=== PATIENT | male | born 1950 | race Hispanic/Latino ===

== ENCOUNTER 2020-06-05 21:15 | Emergency (ER) | payer MEDICARE, SELFPAY ==
--- NOTE | ~2020-06-05 | CT_ITS ---
EXAMINATION: CTA chest PE protocol EXAM DATE: 06/05/2020 23:47 INDICATION: Chest pain, hurts to breathe. COVID positive. TECHNIQUE: Spiral CTA of the chest (pulmonary arteries) was performed with 100 cc Omnipaque 350 intr avenous contrast injection. Images were acquired during the pulmonary arterial phase. Coronal maxi mum intensity projection 3D-reconstructions were created by the technologist on dedicated workstation . Axial, coronal and sagittal reformatted images were reviewed. The dose-length product (DLP) for t his examination was 568.60 mGy-cm. The exposure was tailored according to patient size (auto mA exp osure control), and iterative reconstruction (ASIR) was used as additional dose reduction technique. There is no prior study for comparison. Correlation was made with chest x-ray earlier same day. FINDINGS: Pulmonary arteries are well opacified and without intraluminal filling defects. No thora cic aortic dissection. There are several small peripheral regions of groundglass opacities in the danii ngs bilaterally, distribution and appearance is consistent with provided history of COVID. There are no pleural or pericardial effusions. Tracheobronchial tree is patent. There is no mediastinal, h ilar or axillary lymphadenopathy. There is no pneumothorax. Heart normal in size. No evidence o f coronary arterial calcification. There is 2 cm gallstone. There is mild thoracic spondylosis with out osteoblastic or osteolytic lesions identified. IMPRESSION: 1. Small regions of airspace disease most likely COVID pneumonia. 2. No pulmonary emboli. Reviewed, dictated and finalized at location G. D GEOLOGIST
--- NOTE | ~2020-06-05 | XR_ITS ---
EXAMINATION: XR chest 1V portable EXAM DATE: 06/05/2020 22:13 INDICATION: Chest pressure, hurts to breathe. TECHNIQUE: Portable AP frontal chest x-ray was obtained. Comparison is made to prior examination from 03/02/2019. FINDINGS: The lungs are clear. There are no pleural effusions. Cardiac silhouette is prominent but magnified on this AP technique. There is no pneumothorax suspected. The bones and soft tissues are unremarkable. IMPRESSION: No acute cardiopulmonary findings. Reviewed, dictated and finalized at location A. FOLDER
--- NOTE | 2020-06-05 21:18 | ECG_ITS ---
Measurements Intervals [place] Rate: 67 P: 58 OR: 188 QRS: 19 QRSD: 112 T: 46 QT: 368 QTc: 388 Interpretive Statements SINUS RHYTHM RSR' IN V1 OR V2, CONSIDER RIGHT VENTRICULAR HYPERTROPHY OR RIGHT VCD BORDERLINE ECG Electronically Signed On 06-06-2020 7:06:18 LABORATORY WORKER by Yosef Gasca D.O.
[2020-06-05 21:34] VITALS: BP 161/58; PULSE 65; RESP 16; TEMP 37.2; O2SAT 100
--- NOTE | 2020-06-05 22:09 | ED.GENADULT ---
HPI - General Adult General Chief complaint: Chest Pain Stated complaint: covid+ chest pains, Time Seen by Provider: 06/05/20 21:46 History of Present Illness HPI narrative: Patient is a 69-year-old gentleman who presents the emergency department with chief complaint of chest pain. Patient reports he was diagnosed with COVID-19 on the and today started having a tightness in his chest. The patient states it is worse whenever he takes a deep breath states that it feels like it christians[place] whenever he takes a deep breath. The patient denies fever denies chills states this is an unusual thing for him reports that his also has had similar symptoms. Related Data Allergies Allergy/AdvReac Type Severity Reaction Status Date / Time No Known Allergies Allergy Unverified 08/03/18 11:57 Review of Systems Review of Systems: Narrative: A 10 system review of systems was completed on the patient and is negative except for what is stated in the HPI. Nursing and ancillary documentation was reviewed. PMFSH Comments Patient denies past medical history Social history the patient lives with his patient denies illicit drug use Exam Narrative: Exam Narrative: GENERAL: Well-appearing, well-nourished, and in no acute distress. HEAD: Normocephalic, atraumatic. EYES: PERRLA and EOMI. ENT: Nares clear, no rhinorrhea or epistaxis. Mucous membranes moist. NECK: Supple. CHEST: Clear to auscultation. No respiratory distress. HEART: Regular rate and rhythm. No murmur heard. Normal peripheral pulses. ABDOMEN: Soft, nontender, nondistended, normal active bowel sounds. EXTREMITIES: Normal range of motion. No edema. SKIN: Warm, dry, no rash. NEURO: No focal deficits. Alert and oriented x3. PSYCH: Normal mood and affect. Course Course Emergency Course: EKG is sinus rhythm rate of [address] elevation or ST depression nonspecific interventricular conduction delay Vital Signs Vital signs: Vital Signs Temperature 37.2 C 06/05/20 21:34 Pulse Rate 65 06/05/20 21:34 Respiratory Rate 16 06/05/20 21:34 Blood Pressure 161/58 H 06/05/20 21:34 Pulse Oximetry 100 06/05/20 21:34 Temperature 37.2 C 06/05/20 21:34 Pulse Rate 68 06/05/20 23:58 Respiratory Rate 18 06/05/20 23:58 Blood Pressure 141/64 H 06/05/20 23:58 Pulse Oximetry 97 06/05/20 23:58 Medical Decision Making Vital Signs Vital Signs: Vital Signs Temperature 37.2 C 06/05/20 21:34 Pulse Rate 65 06/05/20 21:34 Respiratory Rate 16 06/05/20 21:34 Blood Pressure 161/58 H 06/05/20 21:34 Pulse Oximetry 100 06/05/20 21:34 Temperature 37.2 C 06/05/20 21:34 Pulse Rate 68 06/05/20 23:58 Respiratory Rate 18 06/05/20 23:58 Blood Pressure 141/64 H 06/05/20 23:58 Pulse Oximetry 97 06/05/20 23:58 Lab Data Result diagrams: 06/05/20 22:30 06/05/20 22:35 Labs: Lab Results 06/05/20 06/05/20 06/05/20 Range/Units 22:30 22:30 22:35 WBC 4.8 (4.5-10.0) K/mm3 RBC 4.74 (4.6-6.20) M/mm3 Hgb 13.5 L (14.0-18.0) g/dL Hct 40.0 L (42.0-52.0) % MCV 84.4 (80-100) fl MCH 28.5 (26-34) pg MCHC 33.8 (32-36) g/dl RDW 11.9 (11.5-14.5) % Plt Count 293 (150-375) k/mm3 MPV 10.9 H (7.4-10.4) fl Immature Gran % (Auto) 0.0 (0-0.5) % Neut % (Auto) 50.7 (45.5-73.1) % Lymph % (Auto) 38.5 (18.3-44.2) % [place] % (Auto) 8.9 H (2.6-8.5) % Eos % (Auto) 1.5 (0-4.4) % Baso % (Auto) 0.4 (0.2-1.2) % Lymph # (Auto) 1.85 (0.9-3.2) K/mm3 [place] # (Auto) 0.4 (0.1-0.6) K/mm3 Eos # (Auto) 0.1 (0-0.3) K/mm3 Baso # (Auto) 0.0 (0.0-0.1) K/mm3 Abs Immat Gran (auto) 0.00 (0.00-0.031) K/mm3 Absolute Neuts (auto) 2.4 (1.3-6.7) K/mm3 Absolute Nucleated RBC 0.0 (0.0-0.012) K/mm3 Nucleated RBC % 0.0 (0.0-0.2) % PT 13.0 (11.1-14.7) Seconds INR 0.9 APTT 32.7 (22.3-36.8) SECONDS Sodium 138 (137-145) mmol/L
[2020-06-05 22:52] LABS: INR 0.9
[2020-06-05 22:53] LABS: Partial Thromboplastin Time 32.7 SECONDS (22.3-36.8)
[2020-06-05 22:53] LABS: Anion Gap 4 mmol/L (8-16); Blood Urea Nitrogen 20 mg/dL (9-20); Carbon Dioxide 30 mmol/L (22-30); Chloride 104 mmol/L (98-107); Estimated CRCL calculation 44 ml/min; Estimated Glomerular Filt Rate 60; Glucose 110 mg/dL (75-110); Potassium 4.1 mmol/L (3.4-5.0); Sodium 138 mmol/L (137-145)
[2020-06-05 22:56] LABS: Basophils Percent Auto 0.4 % (0.2-1.2); Eosinophils Absolute Auto 0.1 K/mm3 (0-0.3); Eosinophils Percent Auto 1.5 % (0-4.4); Hemoglobin 13.5 g/dL (14.0-18.0); Lymphocytes Absolute Auto 1.85 K/mm3 (0.9-3.2); Lymphocytes Percent Auto 38.5 % (18.3-44.2); Mean Corpuscular HGB Conc 33.8 g/dl (32-36); Mean Corpuscular Hemoglobin 28.5 pg (26-34); Mean Corpuscular Volume 84.4 fl (80-100); Mean Platelet Volume 10.9 fl (7.4-10.4); Monocytes Absolute Auto 0.4 K/mm3 (0.1-0.6); Monocytes Percent Auto 8.9 % (2.6-8.5); Neutrophils Absolute Auto 2.4 K/mm3 (1.3-6.7); Neutrophils Percent Auto 50.7 % (45.5-73.1); Platelet Count Result 293 k/mm3 (150-375); Red Blood Count 4.74 M/mm3 (4.6-6.20); Red Cell Distribution Width 11.9 % (11.5-14.5); White Blood Count 4.8 K/mm3 (4.5-10.0)
[2020-06-05] MEDS: ASPIRIN 81 MG CHEWABLE TABLET 324 MG PO (23:00)
[2020-06-05 23:04] LABS: Troponin I < 0.012 ng/mL (0.000-0.034)
[2020-06-05 23:58] VITALS: BP 141/64; PULSE 68; RESP 18; O2SAT 97
[2020-06-06 01:45] VITALS: BP 124/67; PULSE 65; RESP 18; O2SAT 98
== END 2020-06-06 01:00 | disposition home or self-care (01) ==
PROVIDERS: Emergency Medicine; Emergency Provider Emergency Medicine
DX: U07.1 COVID-19 (principal); J12.82 Pneumonia due to coronavirus disease 2019
CPT/HCPCS: 36415; 71045; 71275; 80048; 84484; 85025; 85610; 85730; 93005; 99284; A9270; Q9967

== ENCOUNTER 2020-07-22 09:55 | Outpatient (CLI) | payer MEDICARE, SELFPAY ==
[2020-07-22 11:56] LABS: Alanine Aminotransferase 36 U/L (4-50); Alkaline Phosphatase 52 U/L (38-126); Anion Gap 4 mmol/L (8-16); Aspartate Amino Transferase 43 U/L (17-59); Bilirubin,Total 0.6 mg/dL (0.2-1.3); Blood Urea Nitrogen 14 mg/dL (9-20); Calcium 8.5 mg/dL (8.4-10.2); Carbon Dioxide 28 mmol/L (22-30); Chloride 107 mmol/L (98-107); Cholesterol 178 mg/dL (0-200); Creatine Kinase 653 U/L (55-170); Estimated Glomerular Filt Rate > 60; Glucose 100 mg/dL (75-110); HDL Direct 44 mg/dL; Potassium 4.3 mmol/L (3.4-5.0); Sodium 139 mmol/L (137-145); Triglycerides 140 mg/dL (<150)
[2020-07-22 12:07] LABS: LDL Cholesterol Direct 101 mg/dL
== END 2020-07-22 09:56 | disposition home or self-care (01) ==
PROVIDERS: PCP Physician Assistant; Visit Provider Specialist
DX: R07.9 Chest pain, unspecified (principal); I25.10 Atherosclerotic heart disease of native coronary artery without angina pectoris; E78.5 Hyperlipidemia, unspecified; R60.9 Edema, unspecified; Z79.899 Other long term (current) drug therapy; R00.2 Palpitations
CPT/HCPCS: 36415; 80053; 80061; 82550

== ENCOUNTER 2020-11-07 18:40 | Emergency (ER) | payer MEDICARE, SELFPAY ==
[2020-11-07 18:46] VITALS: BP 141/51; PULSE 60; RESP 20; TEMP 36.2; O2SAT 99
--- NOTE | 2020-11-07 21:36 | ED.SKABFB ---
HPI - Skin/Abscess/Foreign Bdy General Chief complaint: Skin/Abscess/Foreign Body Stated complaint: rash possibly poison rosi per pt Time Seen by Provider: 11/07/20 21:18 Source: patient Mode of arrival: ambulatory Limitations: no limitations History of Present Illness HPI narrative: Patient is a 70 year old male who presents reporting rash to bilateral hands x 1 day. Patient reports exposure to poison rosi. He reports itching and irritation to right hand. He reports using hydrocortisone cream without relief. Patient denies taking oral medications for itching. He denies all other complaints, denies significant medical history. MD complaint: rash Related Data Allergies Allergy/AdvReac Type Severity Reaction Status Date / Time No Known Allergies Allergy Unverified 08/03/18 11:57 Review of Systems Review of Systems: Narrative: CONSTITUTIONAL: Denies fever, chills, or sweats. EYES: Denies visual changes, redness, or discharge. ENT: Denies rhinorrhea, congestion, sore throat, or otalgia. CARDIOVASCULAR: Denies chest pain, palpitations, or edema. RESPIRATORY: Denies cough or dyspnea. GASTROINTESTINAL: Denies abdominal pain, nausea, vomiting, or diarrhea. GENITOURINARY: Denies dysuria or hematuria. SKIN: Rash to bilateral hands MUSCULOSKELETAL: Denies back pain, joint pain, or myalgia. NEUROLOGIC: Denies headache, numbness, dizziness, or weakness. PSYCHIATRIC: Denies anxiety or depression. PMFSH Surgical History Surgical History No significant past surgical history Social History Social History Smoking status: Never smoker Alcohol intake: never Substance use: never Living arrangements: with family Gender identity (if verbalized by the patient): Male Comments At the time of signature, I have reviewed and agree with nursing past medical, surgical, social, and family history unless otherwise noted. Please see nursing chart for further information. There is no relevant family history pertinent to the presenting complaint. Exam Narrative: Exam Narrative: GENERAL: Well-appearing, well-nourished, and in no acute distress. HEAD: Normocephalic, atraumatic. EYES: EOMI. No redness or drainage. Conjunctiva are normal. ENT: Mucous membranes pink and moist. CHEST: No respiratory distress. HEART: Regular rate and rhythm. EXTREMITIES: Normal range of motion. SKIN: Vesicular rash to bilateral hands, mild edema noted to right hand NEURO: No focal deficits. Alert and oriented x3. Gait steady. PSYCH: Normal affect. No signs of depression or anxiety. Course Vital Signs Vital signs: Vital Signs Temperature 36.2 C L 11/07/20 18:46 Pulse Rate 60 11/07/20 18:46 Respiratory Rate 20 11/07/20 18:46 Blood Pressure 141/51 H 11/07/20 18:46 Pulse Oximetry 99 11/07/20 18:46 Temperature 36.2 C L 11/07/20 18:46 Pulse Rate 60 11/07/20 18:46 Respiratory Rate 20 11/07/20 18:46 Blood Pressure 141/51 H 11/07/20 18:46 Pulse Oximetry 99 11/07/20 18:46 Reviewed. Patient has been instructed to follow-up with his PCP regarding his blood pressure. MDM - Skin/Abscess/Foreign Bdy MDM Narrative Medical decision making narrative: Patient appears to have poison rosi to bilateral hands. Patient started on glucocorticoids and topical treatment at this time. Patient agrees with plan of care. Patient is stable for discharge home with outpatient follow-up as directed. Differential Diagnosis Differential diagnosis: Likely abscess of skin or subcutaneous tissue, urticaria, allergic reaction to drug, cellulitis, insect bites, impetigo and contact dermatitis Critical Care Time Critical Care Time Critical Care Time: No Discharge Plan Discharge Clinical Impression: Contact dermatitis Patient Disposition: Home, Self-Care Condition: Stable Instructions: Contact Dermatitis (ED), Poison Rosi (ED) [place]
--- NOTE | 2020-11-07 23:33 | PC.NURSE ---
verbal prescriptions given to tracy @ [facility], [facility].
== END 2020-11-07 22:21 | disposition home or self-care (01) ==
PROVIDERS: Emergency Provider Nurse Practitioner; PCP Physician Assistant
DX: L25.9 Unspecified contact dermatitis, unspecified cause (principal)
CPT/HCPCS: 99283

== ENCOUNTER 2021-08-09 15:10 | Emergency (ER) | payer OTHER, SELFPAY ==
[2021-08-09] VITALS (9 sets, daily range): BP systolic 140–155; BP diastolic 63–73; PULSE 47–60; RESP 11–22; TEMP 36.6; O2SAT 97–100
--- NOTE | ~2021-08-09 | CT_ITS ---
EXAMINATION: CTA chest PE protocol DATE: 08/09/2021 20:21 INDICATION: Shortness of breath with exertion TECHNIQUE: Computed tomography angiography (CTA) of the chest was performed with 100 mL Omnipaque-350 intravenous contrast timed to evaluate the pulmonary arteries. Coronal maximum intensity projection 3D-reconstructions were created by the technologist. The dose-length product (DLP) was 470.64 mGy-cm. Automated exposure control and iterative reconstruction technique were employed. COMPARISON: 06/05/2020 FINDINGS: The pulmonary arteries are well-opacified. No pulmonary embolism is identified. There is de pendent atelectasis. There are minimal airspace opacities of the left lower lobe. There is no pleural effusion or pneumothorax. No pathologically enlarged thoracic lymph nodes are identified. The heart size is normal. A stone is present in the nondistended gallbladder. There is mild thoracic spondylosi s. IMPRESSION: 1. No pulmonary embolus. 2. Minimal left lower lobe airspace opacities, consistent with pneumonia. Reviewed, dictated and finalized at location F.
--- NOTE | ~2021-08-09 | XR_ITS ---
EXAMINATION: XR chest 2V DATE: 08/09/2021 15:57 INDICATION: Shortness of breath TECHNIQUE: PA and lateral views of the chest are obtained. COMPARISON: 06/05/2020 FINDINGS: The lungs are free of acute opacities. There is no pleural effusion or pneumothorax. The he art size is normal. An ASD closure device is noted. There is mild thoracic spondylosis. IMPRESSION: 1. No acute cardiopulmonary abnormality. Reviewed, dictated and finalized at location F.
--- NOTE | 2021-08-09 15:30 | ECG_ITS ---
Measurements Intervals [place] Rate: 53 P: 54 [place]: 201 QRS: 1 QRSD: 109 T: 41 QT: 405 QTc: 382 Interpretive Statements SINUS BRADYCARDIA INCOMPLETE RIGHT BUNDLE BRANCH BLOCK [90+ ms QRS DURATION, TERMINAL R IN V1/V2, 40+ ms S IN I/aVL/V4/V5/V6] COMPARED TO ECG 06/05/2020 21:25:25 SINUS BRADYCARDIA NOW PRESENT Electronically Signed On 08-10-2021 16:09:48 CDT by William Ramos M.D.
[2021-08-09 17:21] LABS: Basophils Absolute Auto 0.1 K/mm3 (0.0-0.1); Basophils Percent Auto 0.9 % (0.2-1.2); Eosinophils Absolute Auto 0.1 K/mm3 (0-0.3); Eosinophils Percent Auto 2.4 % (0-4.4); Hematocrit 42.2 % (42.0-52.0); Hemoglobin 14.7 g/dL (14.0-18.0); Lymphocytes Absolute Auto 2.11 K/mm3 (0.9-3.2); Lymphocytes Percent Auto 36.3 % (18.3-44.2); Mean Corpuscular HGB Conc 34.8 g/dl (32-36); Mean Corpuscular Hemoglobin 28.8 pg (26-34); Mean Corpuscular Volume 82.6 fl (80-100); Mean Platelet Volume 10.8 fl (7.4-10.4); Monocytes Absolute Auto 0.5 K/mm3 (0.1-0.6); Monocytes Percent Auto 8.4 % (2.6-8.5); Platelet Count Result 235 k/mm3 (150-375); Red Blood Count 5.11 M/mm3 (4.6-6.20); White Blood Count 5.8 K/mm3 (4.5-10.0)
[2021-08-09 17:36] LABS: Alanine Aminotransferase 55 U/L (4-50); Albumin Level 4.6 g/dL (3.5-5.1); Alkaline Phosphatase 68 U/L (38-126); Anion Gap 8 mmol/L (8-16); Aspartate Amino Transferase 42 U/L (17-59); Bilirubin,Total 0.6 mg/dL (0.2-1.3); Blood Urea Nitrogen 16 mg/dL (9-20); Calcium 8.4 mg/dL (8.4-10.2); Carbon Dioxide 22 mmol/L (22-30); Chloride 106 mmol/L (98-107); Estimated CRCL calculation 73 ml/min; Estimated Glomerular Filt Rate > 60; Glucose 97 mg/dL (65-110); Sodium 136 mmol/L (137-145)
--- NOTE | 2021-08-09 17:39 | ED.SOB ---
HPI - SOB/Dyspnea General Chief Complaint: Shortness of Breath/Dyspnea Stated Complaint: shortness of breath Time Seen by Provider: 08/09/21 17:29 History of Present Illness HPI Narrative: 70-year-old male history of septal occlusive device presents emergency room for evaluation of shortness of breath that he has experienced for 3 days. Patient states that shortness of breath comes and goes, but has noted that it is worse with exertion. Patient denies any chest pain, dizziness, presyncope, or weakness. Patient denies any significant history other than prostate cancer. Patient states that he was evaluated annually by his operating system designer, states last year had a normal echo and stress test. Related Data Allergies Allergy/AdvReac Type Severity Reaction Status Date / Time No Known Allergies Allergy Unverified 08/03/18 11:57 Review of Systems Review of Systems: CONSTITUTIONAL: Denies fever, chills, or sweats. EYES: Denies visual changes, redness, or discharge. ENT: Denies rhinorrhea, congestion, sore throat, or otalgia. CARDIOVASCULAR: Denies chest pain, palpitations, or edema. RESPIRATORY: Reports dyspnea GASTROINTESTINAL: Denies abdominal pain, nausea, vomiting, or diarrhea. GENITOURINARY: Denies dysuria or hematuria. SKIN: Denies rash or itching. MUSCULOSKELETAL: Denies back pain, joint pain, or myalgia. NEUROLOGIC: Denies headache, numbness, dizziness, or weakness. PSYCHIATRIC: Denies anxiety or depression. PMFSH Surgical History Surgical History No significant past surgical history Social History Social History Smoking status: Never smoker Alcohol intake: never Substance use: never Gender identity (if verbalized by the patient): Male Exam Narrative: GENERAL: Well-appearing, well-nourished, and in no acute distress. HEAD: Normocephalic, atraumatic. EYES: PERRLA and EOMI. CHEST: Clear to auscultation. No respiratory distress. No wheezes rales or rhonchi HEART: Bradycardic with normal rhythm. No murmur heard. Normal peripheral pulses. ABDOMEN: Soft, nontender, nondistended, normal active bowel sounds. EXTREMITIES: Normal range of motion. No edema. SKIN: Warm, dry, no rash. NEURO: No focal deficits. Alert and oriented x3. PSYCH: Normal mood and affect. Course Vital Signs Vital signs: Vital Signs Temperature 36.6 C 08/09/21 15:59 Pulse Rate 60 08/09/21 15:59 Respiratory Rate 18 08/09/21 15:59 Blood Pressure 143/63 H 08/09/21 15:59 Pulse Oximetry 100 08/09/21 15:59 Temperature 36.6 C 08/09/21 15:59 Pulse Rate 47 L 08/09/21 20:01 Respiratory Rate 13 08/09/21 20:01 Blood Pressure 147/67 H 08/09/21 20:01 Pulse Oximetry 99 08/09/21 20:01 MDM - SOB/Dyspnea MDM Narrative Medical decision making narrative: 70-year-old male presented emergency room complaints of a cute onset of exertional dyspnea over the past 3 days. Patient denied fever or cough or chest pain. CBC and CMP were unremarkable. Chest x-ray showed no acute cardiopulmonary disease. D-dimer was slightly elevated so CTA was obtained. CTA of the chest shows a left lower lobe opacities consistent with pneumonia. Patient was given a gram of Rocephin here in the emergency room and sent home on doxycycline. Lab Data Result diagrams: 08/09/21 17:13 08/09/21 17:13 Labs: Lab Results 08/09/21 08/09/21 08/09/21 Range/Units 17:13 17:13 17:13 WBC 5.8 (4.5-10.0) K/mm3 RBC 5.11 (4.6-6.20) M/mm3 Hgb 14.7 (14.0-18.0) g/dL Hct 42.2 (42.0-52.0) % MCV 82.6 (80-100) fl MCH 28.8 (26-34) pg MCHC 34.8 (32-36) g/dl RDW 12.0 (11.5-14.5) % Plt Count 235 (150-375) k/mm3 MPV 10.8 H (7.4-10.4) fl Immature Gran % (Auto) 0.0 (0-0.5) % Neut % (Auto) 52.0 (45.5-73.1) % Lymph % (Auto) 36.3 (18.3-44.2) % [place] % (Auto) 8.4 (2.6-8
[2021-08-09 18:44] LABS: NT Pro B Type Natriuretic Pept 99 pg/mL (5-100); Troponin I < 0.012 ng/mL (0.000-0.034)
[2021-08-09 18:59] LABS: D Dimer 0.51 ug/mL (<0.48)
== END 2021-08-09 21:39 | disposition home or self-care (01) ==
PROVIDERS: Emergency Medicine; Emergency Provider Nurse Practitioner Family; PCP Internal Medicine
DX: J18.9 Pneumonia, unspecified organism (principal); R00.1 Bradycardia, unspecified; I45.10 Unspecified right bundle-branch block; Z95.818 Presence of other cardiac implants and grafts
CPT/HCPCS: 36415; 71046; 71275; 80053; 83880; 84484; 85025; 85380; 93005; 96365; 99284; J0696; Q9967

== ENCOUNTER 2021-10-26 14:00 | Outpatient (CLI) | payer OTHER, SELFPAY ==
--- NOTE | ~2021-10-26 | XR_ITS ---
XR chest 2V DATE: 10/26/2021 14:21 INDICATION: Dyspnea on exertion TECHNIQUE: PA and lateral views COMPARISON: 08/05/2021 CT pulmonary scan 08/05/2021 2 view chest FINDINGS: Normal heart size. Atrial septal closure device is noted. No pulmonary infiltrate or consolidation, pleural effusion or pulmonary vascular congestion or pneumo thorax. IMPRESSION: No active cardiopulmonary disease Reviewed, dictated and finalized at location A.
== END 2021-10-26 14:01 | disposition home or self-care (01) ==
PROVIDERS: PCP Internal Medicine; Visit Provider Internal Medicine
DX: R06.09 Other forms of dyspnea (principal)
CPT/HCPCS: 71046

== ENCOUNTER 2021-10-28 10:06 | Outpatient (CLI) | payer OTHER, SELFPAY ==
--- NOTE | 2021-10-28 11:30 | NEURO_ITS ---
Impression: # Complains of numbness and pain in legs. # Borderline posterior tibial neuropathy. # Abnormal needle/EMG exam in bilateral EDL. # Clinical correlation recommended. Nerve Conduction Studies Anti Sensory Summary Table Stim Site NR Peak (ms) P-T Amp (?V) Site1 Site2 Delta-P (ms) Dist (cm) Kyle (m/s) Left Sup Fibular Anti Sensory (Ant Lat Mall) 14 cm 3.5 15.3 14 cm Ant Lat Mall 3.5 16.0 46 Right Sup Fibular Anti Sensory (Ant Lat Mall) 14 cm 3.4 16.3 14 cm Ant Lat Mall 3.4 16.0 47 Left Sural Anti Sensory (Lat Mall) Calf 3.9 8.2 Calf Lat Mall 3.9 16.0 41 Right Sural Anti Sensory (Lat Mall) Calf 3.7 9.7 Calf Lat Mall 3.7 16.0 43 Motor Summary Table Stim Site NR Onset (ms) O-P Amp (mV) Site1 Site2 Delta-0 (ms) Dist (cm) Kyle (m/s) Left Peroneal Motor (Vastus Med) Ankle 4.8 0.5 Popit Ankle 10.2 41.0 40 Popit 15.0 0.9 Right Peroneal Motor (Vastus Med) Ankle 4.2 1.7 Popit Ankle 8.6 39.0 45 Popit 12.8 1.9 Left Tibial Motor (Abd Espinoza Brev) Ankle 4.8 2.4 Knee Ankle 9.9 41.0 41 Knee 14.7 1.2 Right Tibial Motor (Abd Espinoza Brev) Ankle 4.7 3.3 Knee Ankle 10.8 43.0 40 Knee 15.5 1.8 F Wave Studies NR F-Lat (ms) L-R F-Lat (ms) Left Peroneal (Mrkrs) (EDB) 47.98 0.92 Right Peroneal (Mrkrs) (EDB) 48.91 0.92 Left Tibial (Mrkrs) (Abd Hallucis) 48.70 0.94 Right Tibial (Mrkrs) (Abd Hallucis) 47.76 0.94 EMG Side Muscle Nerve Root Ins Act Fibs Amp Dur Recrt Comment Right AntTibialis Dp Br Fibular L4-5 Nml Nml Nml Nml Nml Right Gastroc Tibial S1-2 Nml Nml Nml Nml Nml Right Fibularis Long Sup Br Fibular L5-S1 Nml Nml Nml Nml Nml Right Flex Dig Long Tibial L5-S2 Nml Nml Nml Nml Reduced Right Ext Dig Brev Dp Br Fibular L5, S1 Nml Nml Nml Nml Nml Left AntTibialis Dp Br Fibular L4-5 Nml Nml Nml Nml Nml Left Gastroc Tibial S1-2 Nml Nml Nml Nml Nml Left Fibularis Long Sup Br Fibular L5-S1 Nml Nml Nml Nml Nml Left Flex Dig Long Tibial L5-S2 Nml Nml Nml Nml Reduced Left Ext Dig Brev Dp Br Fibular L5, S1 Nml Nml Nml Nml Nml Right ExtHallLong Dp Br Fibular L5, S1 Nml Nml Nml Nml Nml Right Ext Dig Long Dp Br Fibular L5-S1 Nml Nml Nml Nml Reduced Right QuadratusFem QuadFemoris L4-5, S1 Nml Nml Nml Nml Nml Left ExtHallLong Dp Br Fibular L5, S1 Nml Nml Nml Nml Nml Left Ext Dig Long Dp Br Fibular L5-S1 Nml Nml Nml Nml Reduced Left QuadratusFem QuadFemoris L4-5, S1 Nml Nml Nml Nml Nml MTDD
== END 2021-10-28 10:07 | disposition home or self-care (01) ==
LOC: ANHNEURO 10:08
PROVIDERS: PCP Internal Medicine; Visit Provider Internal Medicine
DX: G90.09 Other idiopathic peripheral autonomic neuropathy (principal); G63 Polyneuropathy in diseases classified elsewhere
CPT/HCPCS: 95886; 95910

== ENCOUNTER 2022-07-03 11:20 | Emergency (ER) | payer OTHER, SELFPAY ==
[2022-07-03 11:26] VITALS: BP 148/63; PULSE 75; RESP 16; TEMP 37.1; O2SAT 98
[2022-07-03 11:34] VITALS: O2SAT 97
--- NOTE | 2022-07-03 12:37 | ED.URI ---
HPI - URI/Sore Throat General Chief Complaint: Upper Respiratory Infection Stated Complaint: Covid symptoms Time Seen by Provider: 07/03/22 11:53 History of Present Illness HPI Narrative: 71 y/o male presents with cough, congestion that started 3 days ago. patient denies fevers, shortness of breath or hx of lung issues. patient took a home covid test that was +. patient coming to get oral treatment for covid. patient denies any other symptoms. Onset (ago): day(s) (3) Related Data Allergies Allergy/AdvReac Type Severity Reaction Status Date / Time No Known Allergies Allergy Verified 07/03/22 11:37 Review of Systems Review of Systems: All systems reviewed & are unremarkable except as noted in HPI and below Respiratory: Respiratory: Reports chest congestion and Reports cough PMFSH Surgical History Surgical History No significant past surgical history Social History Social History Smoking status: Never smoker Alcohol intake: never Substance use: never Living arrangements: with family Gender identity (if verbalized by the patient): Male Exam Const: General: healthy appearing, no acute distress and alert HENMT: Head: normal to inspection Ears: external ears normal and TM's normal bilaterally Face/Nose/Sinus: Normal external nose present Mouth: Yes Normal oral and palatal mucosa present Eyes: Conjunctivae: conjunctivae normal EOM: EOMs intact bilaterally Neck: Neck: normal visual inspection Chest: Chest palpation & inspection: normal inspection of the chest Resp: Effort & Inspection: normal respiratory effort Auscultation: clear to auscultation bilaterally Cardio: Rate: regular rate GI: GI Palp: Yes Soft to palpation Back/Spine/Pelvis: Back: no CVA tenderness Skin: General skin exam: normal color Neuro: General: patient oriented x3 Extrem: General: normal to inspection Psych: Affect: normal affect Course Course Emergency Course: patients RA sat is normal. BS CTA. will start on paxlovid and tesselon with close f/u with pcp Vital Signs Vital signs: Vital Signs Temperature 37.1 C 07/03/22 11:26 Pulse Rate 75 07/03/22 11:26 Respiratory Rate 16 07/03/22 11:26 Blood Pressure 148/63 H 07/03/22 11:26 Pulse Oximetry 98 07/03/22 11:26 Oxygen Delivery Room Air 07/03/22 11:26 Temperature 37.1 C 07/03/22 11:26 Pulse Rate 75 07/03/22 11:26 Respiratory Rate 16 07/03/22 11:26 Blood Pressure 148/63 H 07/03/22 11:26 Pulse Oximetry 97 07/03/22 11:34 Oxygen Delivery Room Air 07/03/22 11:34 MDM - URI/Sore Throat MDM Narrative Medical decision making narrative: patient is high risk r/t age and hx of heart murmur. will start on oral treatment for covid-19 Discharge Plan Discharge Clinical Impression: COVID-19 Cough Qualifiers: Cough type: acute Qualified Code(s): R05.1 - Acute cough Patient Disposition: Home, Self-Care Condition: Stable Instructions: Antibiotic Form, COVID-19 and Chronic Health Conditions (ED) Additional Instructions: TAKE MEDICATIONS PRESCRIBED CLOSE FOLLOW-UP WITH PRIMARY CARE DOCTOR IN 2-3 DAYS IF YOU DEVELOP SHORTNESS OF BREATH OR CHEST PAIN, RETURN TO THE ER Prescriptions: New benzonatate 200 mg capsule 200 mg PO BID PRN (Reason: cough) Qty: 14 0RF Paxlovid (EUA) 300 mg (150 mg x 2)-100 mg tablets,dose pack See Rx Instructions .ROUTE .COMPLEX Qty: 30 0RF Rx Instructions: take TWO 150 mg tablets of nirmatrelvir with ONE 100 mg tablet of ritonavir twice daily for 5 days No Action clobetasol 0.05 % cream 1 applic topical BID 14 Days Qty: 30 0RF prednisone 20 mg tablet 40 mg PO DAILY 5 Days Qty: 10 0RF doxycycline monohydrate 100 mg capsule 100 mg PO BID 10 Days Qty: 20 0RF Follow-up/Referrals: Debi,Sudhakar López MD [Primary Care Provider] - 3 Days
[2022-07-03 13:29] VITALS: BP 118/70; PULSE 87; RESP 16; TEMP 36.4; O2SAT 97
== END 2022-07-03 13:30 | disposition home or self-care (01) ==
PROVIDERS: Emergency Provider Nurse Practitioner Family; PCP Internal Medicine
DX: U07.1 COVID-19 (principal)
CPT/HCPCS: 99283